=== PATIENT | male | born 1940 | race Caucasian/White ===

== ENCOUNTER 2017-09-04 14:49 | Emergency (ER) | payer MEDICARE, OTHER ==
[~2017-09-04] VITALS: Ht 177.8 cm; Wt 83.9 kg
[2017-09-04] MEDS ORDERED: MONTELUKAST SOD10 MG PO (15:04)
[2017-09-04] MEDS ORDERED: MOBIC15 MG PO (15:05)
[2017-09-04] MEDS ORDERED: GLUCOPHAGE500 MG PO (15:05)
[2017-09-04] MEDS ORDERED: LOSARTAN POTASS25 MG PO (15:05)
[2017-09-04] MEDS ORDERED: LIPITOR10 MG PO (15:06)
[2017-09-04] MEDS ORDERED: NEXIUM40 MG PO (15:06)
[2017-09-04] MEDS ORDERED: SYMBICORT 16010.2 GM INH (15:07)
[2017-09-04] MEDS ORDERED: VENTOLIN HFA18 GM INH (15:07)
[2017-09-04] MEDS ORDERED: SPIRIVA18 MCG INH (15:08)
[2017-09-04] MEDS ORDERED: IPRAT-ALBUT 0.5-3 ML INH (15:50)
[2017-09-04] MEDS ORDERED: PREDNISONE20 MG PO (15:50)
== END 2017-09-04 17:22 | disposition home or self-care (01) ==
LOC: ED 14:49
DX: J44.1 Chronic obstructive pulmonary disease with (acute) exacerbation (principal); E11.9 Type 2 diabetes mellitus without complications; I10 Essential (primary) hypertension; Z87.891 Personal history of nicotine dependence; Z79.84 Long term (current) use of oral hypoglycemic drugs; Z79.899 Other long term (current) drug therapy
CPT/HCPCS: 71046; 94640; 94644; 99283; J7512